=== PATIENT | male | born 1970 | race Caucasian/White ===

== ENCOUNTER → 2024-02-12 08:24 | Outpatient (BNVA) | payer MEDICARE, MEDICAID, OTHER, SELFPAY | PROVIDERS: PCP Family Medicine; Visit Provider Physician Assistant | DX: Z98.890 Other specified postprocedural states; M25.511 Pain in right shoulder; M12.811 Other specific arthropathies, not elsewhere classified, right shoulder | CPT/HCPCS: 73030; 99203 ==

== ENCOUNTER 2024-08-24 06:00 | Outpatient (CLI) | payer MEDICARE, OTHER, MEDICAID, SELFPAY ==
--- NOTE | 2024-08-24 | XR_ITS ---
WS: [id number] Exam: XR hip BI m 5V wo/w pel* [id number] Date/Time of Exam: 08/24/2024 9:52 AM Reason For Exam: hip pain There is mild degenerative change of both hips of the LEFT slightly more so than the RIGHT. No fractures identified. There appear to be fracture deformities of the LEFT pelvis. Normal soft tissues. XR/XR hip BI m 5V wo/w pel* [id number] IMPRESSION: 1. 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 2. Old fracture deformities of the LEFT pelvis.
== END 2024-08-24 06:01 | disposition home or self-care (01) ==
LOC: RAD 08-26 16:15
PROVIDERS: PCP Family Medicine; Visit Provider Student in an Organized Health Care Education/Training Program
DX: M16.0 Bilateral primary osteoarthritis of hip (principal); R93.7 Abnormal findings on diagnostic imaging of other parts of musculoskeletal system
CPT/HCPCS: 73523

== ENCOUNTER → 2024-08-24 09:45 | Outpatient (BNVA) | payer MEDICARE, OTHER, MEDICAID, SELFPAY | PROVIDERS: PCP Family Medicine; Visit Provider Physician Assistant | DX: M25.551 Pain in right hip (principal) | CPT/HCPCS: 73523 ==